=== PATIENT | male | born 1990 | race Caucasian/White ===

== ENCOUNTER 2020-08-19 15:02 | Emergency (ER) | payer OTHER ==
[~2020-08-19 15:02] MED LIST: PROTONIX40 M1 PO
== END 2020-08-19 16:08 | disposition home or self-care (01) ==
LOC: ER1 15:02
DX: T20.10XA Burn of first degree of head, face, and neck, unspecified site, initial encounter (principal); T31.0 Burns involving less than 10% of body surface
CPT/HCPCS: 16000; 71045; 99283